=== PATIENT | female | born 2000 | race Caucasian/White ===

== ENCOUNTER 2019-10-28 11:40 | Emergency (ER) | payer MEDICAID, OTHER ==
[~2019-10-28] VITALS: Ht 152.4 cm; Wt 40.8 kg
--- NOTE | 2019-10-28 12:30 | NUR ---
c/o cough and fever x 3 days, coughing out blood this morning. Patient a/ox4, breathing even and unlabored, no sob noted. Kept comfortable.
--- NOTE | 2019-10-28 13:29 | NUR ---
RAPID FLU SWAB SENT TO LAB
--- NOTE | 2019-10-28 15:41 | NUR ---
Patient discharged to home in stable condition. Written and verbal after care instructions given. Patient verbalizes understanding of instruction.
[2019-10-28 15:43] VITALS: BP 113/70
== END 2019-10-28 15:44 | disposition home or self-care (01) ==
LOC: ER 11:40
DX: J10.1 Influenza due to other identified influenza virus with other respiratory manifestations (principal); F90.9 Attention-deficit hyperactivity disorder, unspecified type

== ENCOUNTER → 2020-12-07 | Emergency (ER) | payer MEDICAID, OTHER ==
[~2020-12-07] VITALS: Ht 152.4 cm; Wt 40.8 kg
[~2020-12-07] MED LIST: CEPH500T PO; CEPHALEXIN MONOHYDRATE 500 MG CAPSULE PO ONE; PHEN-704 PO
--- NOTE | 2020-12-07 17:52 | NUR ---
THE PATIENT CAME TO ER FOR C/O DYSURIA W/ FOUL SMELLING URINE NOTED SINCE YESTERDAY. THE PATIENT DENIES PAIN. IN ROOM AIR AND DENIES SOB. REPSIRATION REGULAR AND UNLABORED. THE PATIENT IS PROVIDED WITH A WARM BLANKET. WILL CONTINUE TO MONITOR.
--- NOTE | 2020-12-07 18:06 | NUR ---
URINE COLLECTED AND SENT IT TO THE LAB.
[2020-12-07 19:00] LABS: BILIRUBIN,URINE NEGATIVE (NEGATIVE); COLOR,URINE AMBER (YELLOW); LEUKOCYTE ESTERASE ,URINE LARGE (NEGATIVE); NITRITE, URINE NEGATIVE (NEGATIVE); PROTEIN,URINE TRACE mg/dl (NEGATIVE); UGLUCOSE NEGATIVE (NEGATIVE); UROBILINOGEN,URINE 0.2 EU/dL (0.2)
[2020-12-07 19:05] LABS: BACTERIA,URINE 1+ /HPF (None Seen); RBC,URINE TOO NUMEROUS TO COUN /HPF (0-2); SQUAMOUS EPITHELIAL CELL,UR Few /HPF (None Seen); WBC,URINE 81-100 /HPF (0-3)
[2020-12-07] MEDS: CEPHALEXIN MONOHYDRATE 500 MG CAPSULE PO ONE (19:23)
[2020-12-07 19:36] VITALS: BP 112/64
--- NOTE | 2020-12-07 19:37 | NUR ---
Patient is alert and oriented x4. Denies pain. In room air and denies SOB. Respiration regular and unlabored. Patient discharged to home in stable condition. Written and verbal after care instructions given. Patient verbalizes understanding of instruction. The patient left ER in stable condition.
== END | disposition home or self-care (01) ==
LOC: ER 17:02
DX: N30.80 Other cystitis without hematuria (principal); F90.9 Attention-deficit hyperactivity disorder, unspecified type; F32.9 Major depressive disorder, single episode, unspecified
CPT/HCPCS: 81001; 84703-TC; 87086-TC